=== PATIENT | female | born 1970 | race Caucasian/White ===

== ENCOUNTER 2020-05-28 08:13 | Emergency (ER) | payer OTHER, SELFPAY ==
[2020-05-28 08:25] VITALS: BP 158/99; PULSE 85; RESP 16; TEMP 36.6; O2SAT 100
--- NOTE | 2020-05-28 08:55 | ED.FEMALEGU ---
HPI - Female Genitourinary General Chief complaint: Urogenital-Female Stated complaint: kidney inf Source: patient and RN notes reviewed Mode of arrival: ambulatory Limitations: no limitations History of Present Illness HPI Narrative: This is a 49-year-old white female who presented today complaining of pain to her pelvis area and lower back area. Patient noted that several days ago she started experiencing pain in her pelvis area and lower back area with foul-smelling urine, fatigue and nausea. She noted that she did attempt to to flush it out by drinking water. Patient noted that her condition did not improve so she proceeded here to our urgent care. Patient urinalysis did indicate 1+ leukocytes she will be treated for urinary tract infection with her urine sent off for culture. Explained to patient that we will give her a broad-spectrum antibiotic and once her culture returns if it is not the appropriate antibiotic we will call her and send a new prescription to her pharmacy. Patient was discharged with ciprofloxacin 500 mg every 12 hours for 7 days, and Zofran to treat her nausea. The patient denies SOB, CP, palpitation, extremity numbness, lightheadedness, dizziness, constipation, diarrhea, chills, urgency, frequency, hematuria , dysuria or fever. She did deny any painful urination, hematuria, STDs, urinary incontinence or vaginal discharge MD elicited complaint: UTI Female Urogenital Radiation: Non-Radiating Vaginal discharge: none Vaginal bleeding: none Urinary symptoms: Foul Smelling Urine and Flank Pain Relieving factors: none Associated symptoms: abdominal pain and nausea Related Data Allergies Allergy/AdvReac Type Severity Reaction Status Date / Time meperidine Allergy Mild Nausea Verified 05/28/20 08:36 Review of Systems Review of Systems: All systems reviewed & are unremarkable except as noted in HPI and below (10 point system review) Exam Narrative: Exam Narrative: GENERAL: This is a well-nourished, well-developed patient, in no apparent distress. HEAD: normocephalic, atraumatic. EYES: PERRL. Sclera clear/white. Vision is grossly intact. EARS: External ears normal, auditory canals clear and without drainage, TMs normal without perforation. Hearing grossly intact. NOSE: External nose normal with no obvious nasal discharge, nares without redness, no rhinorrhea. THROAT: Mucous membranes moist, posterior pharynx clear. NECK: Neck supple, non-tender without lymphadenopathy, masses or thyromegaly. CARDIOVASCULAR: Regular rate and rhythm without murmurs, gallops, or rubs. RESPIRATORY: Clear to auscultation. Breath sounds equal bilaterally. No wheezes, rales, or rhonchi. GASTROINTESTINAL: Abdomen soft, non-tender, nondistended. Bowel sounds are active. No hepato-splenomegaly, or palpable masses. No guarding. SKIN: warm, intact with no suspicious lesions or rash, good texture and turgor. : CVA tenderness NEURO: awake, alert, and oriented to person, place and time. There were no obvious focal neurologic abnormalities. Steady gait EXTREMITIES: Normal range of motion. No edema. No calf tenderness. Negative Homans sign bilaterally. BACK: Nontender without deformity or crepitance. No flank tenderness. Course Course Emergency Course: Patient will receive ciprofloxacin 500 mg every 12 hours for 7 days, Azo and Zofran to treat her nausea Vital Signs Vital signs: Vital Signs Temperature 97.8 F 05/28/20 08:25 Pulse Rate 85 05/28/20 08:25 Respiratory Rate 16 05/28/20 08:25 Blood Pressure 158/99 H 05/28/20 08:25 Pulse Oximetry 100 05/28/20 08:25 Temperature 97.8 F 05/28/20 08:25 Pulse Rate 85 05/28/20 08:25 Respiratory Rate 16 05/28/20 08:25 Blood Pressure 158/99 H 05/28/20 08:25 Pulse Oximetry 100 05/28/20 08:25 MDM - Female Genitourinary Differential Diagnosis Differential diagnosis: Likely urinary tract infection and other (Pyelonephritis, kidney stone) Medical Records Attestation: I re
== END 2020-05-28 09:00 | disposition home or self-care (01) ==
PROVIDERS: Emergency Provider Nurse Practitioner
DX: N30.00 Acute cystitis without hematuria (principal)
CPT/HCPCS: 81003; 87077; 87086; 87088; 87186; 99213; G0463